=== PATIENT | male | born 1995 | race Caucasian/White ===

== ENCOUNTER 2016-07-17 18:02 | Emergency (ER) | payer OTHER ==
[2016-07-17 19:43] VITALS: BP 145/68
--- NOTE | 2016-07-17 20:03 | UC ---
Lower Extremity/Ankle HPI - HPI Summary HPI Summary: rolled left ankle 2 weeks ago. It was starting to heal, then he rolled it again a few days ago while hunting. Inverted foot. [place] a "pop" both times. Now very painful, hurts a lot at night. Swelling. Limping gait. He had surgery on ankle in 2009 to remove a floating piece of bone that resulted from a fracture. His ankle felt back to normal until 2 weeks ago. - History of Current Complaint Chief Complaint: UCLowerExtremity Stated Complaint: LEFT ANKLE INJURY Time Seen by Provider: 07/17/16 19:52 Hx Obtained From: Patient Onset/Duration: Gradual Onset, Lasting Weeks - 2 Severity Initially: Mild Severity Currently: Moderate Aggravating Factor(s): Standing, Ambulation Alleviating Factor(s): Rest, Elevation, Ice - Risk Factors Gout Risk Factors: Male, Obesity DVT Risk Factors: Negative Septic Arthritis Risk Factor: Negative - Allergies/Home Medications Allergies/Adverse Reactions: Allergies Allergy/AdvReac Type Severity Reaction Status Date / Time No Known Allergies Allergy Verified 07/17/16 19:36 Home Medications: Home Medications Ibuprofen TAB* [Advil TAB*] 400 mg PO Q6H PRN 07/17/16 [History Confirmed ] PMH/Surg Hx/FS Hx/Imm Hx Respiratory History Of: Reports: Asthma - Surgical History Surgical History: Yes Surgery Procedure, Year, and Place: 2008- ankle surgery - Family History Known Family History: Positive: Hypertension - Social History Occupation: Employed Full-time Lives: With Family Alcohol Use: Rare Substance Use Type: None Smoking Status (MU): Never Smoked Tobacco - Immunization History Vaccination Up to Date: Yes Review of Systems Constitutional: Negative Skin: Negative Eyes: Negative ENT: Negative Respiratory: Negative Cardiovascular: Negative Gastrointestinal: Negative Genitourinary: Negative Motor: Negative Neurovascular: Negative Musculoskeletal: Arthralgia, Decreased ROM, Edema, Myalgia Neurological: Negative Psychological: Negative All Other Systems Reviewed And Are Negative: Yes Physical Exam Triage Information Reviewed: Yes Appearance: Well-Appearing, No Pain Distress, Well-Nourished, Obese Vital Signs: Initial Vital Signs Temp 98.8 F 07/17/16 19:37 Pulse 81 07/17/16 19:37 Resp 20 07/17/16 19:37 BP 145/68 07/17/16 19:37 Vital Signs Reviewed: Yes Eye Exam: Normal Neck exam: Normal Neck: Positive: Supple Respiratory Exam: Normal Cardiovascular Exam: Normal Musculoskeletal Exam: Other - left ankle diffusely swollen. No specific tenderness to palpation. Good ROM, pain on inverting foot and weight-bearing. He says pain radiates to foot dorsum Neurological Exam: Normal Psychological Exam: Normal Skin Exam: Normal Diagnostics - Laboratory Diagnostic Studies Completed/Ordered: xray ankle neg Lower Extremity Course/Dx - Differential Dx/Diagnosis Differential Diagnosis/HQI/PQRI: Fracture (Closed), Sprain Provider Diagnoses: ankle sprain Discharge - Discharge Plan Condition: Stable Disposition: HOME Patient Education Materials: Ankle Sprain (ED), Ankle Exercises (GEN) Referrals: Isidro Qureshi MD [Medical Doctor] - Isacc Chairez MD [Primary Care Provider] - Additional Instructions: If you are not improving after a week of rest, contact Dr. Qureshi (Orthopedic Surgery) for further evaluation
--- NOTE | 2016-07-17 20:19 | RAD ---
INDICATION: Left ankle pain after traumatic inversion injury one week earlier. COMPARISON: Ankle radiograph dated May 20, 2015 TECHNIQUE: 3 views of the left ankle were obtained. FINDINGS: The well corticated bones exhibit normal alignment. Joint spaces appear maintained. No fracture is seen. IMPRESSION: Normal ankle radiograph. If the patient's symptoms persist, follow-up imaging is recommended.
== END 2016-07-17 20:48 | disposition home or self-care (01) ==
LOC: UCCORT 18:02
DX: S93.402A Sprain of unspecified ligament of left ankle, initial encounter (principal); X50.1XXA Overexertion from prolonged static or awkward postures, initial encounter; Y93.89 Activity, other specified; Y92.9 Unspecified place or not applicable
CPT/HCPCS: 99213; G0463

== ENCOUNTER 2017-05-29 17:03 | Emergency (ER) | payer OTHER | END 2017-05-29 19:38 | disposition left against medical advice (07) | LOC: UCCORT 17:03 | DX: S99.922A Unspecified injury of left foot, initial encounter (principal); X58.XXXA Exposure to other specified factors, initial encounter; Y93.9 Activity, unspecified; Y92.9 Unspecified place or not applicable; Z53.21 Procedure and treatment not carried out due to patient leaving prior to being seen by health care provider ==

== ENCOUNTER 2018-03-16 12:23 | Emergency (ER) | payer OTHER ==
[2018-03-16 13:43] VITALS: BP 134/79
--- NOTE | 2018-03-16 13:48 | ED ---
Skin Complaint - HPI Summary HPI Summary: 23 yr old male with insect bite to right upper buttock area. He was bitten about six days ago. He denies any fever or chills. He has a localized area of swelling and some redness around the bite. he is concerned about lyme exposure. - History of Current Complaint Time Seen by Provider: 03/16/18 13:35 Stated Complaint: BITE - Allergy/Home Medications Allergies/Adverse Reactions: Allergies Allergy/AdvReac Type Severity Reaction Status Date / Time seasonal Allergy Congestion Uncoded 03/16/18 13:44 PMH/Surg Hx/FS Hx/Imm Hx Respiratory History: Reports: Hx Asthma - Surgical History Surgery Procedure, Year, and Place: 2008- ankle surgery Infectious Disease History: Denies: Traveled Outside the [place] in Last 30 Days - Family History Known Family History: Positive: Hypertension - Social History Occupation: Employed Full-time Alcohol Use: Rare Substance Use Type: Reports: None Smoking Status (MU): Never Smoked Tobacco Review of Systems Constitutional: Negative Positive: Other - tick bite All Other Systems Reviewed And Are Negative: Yes Physical Exam Triage Information Reviewed: Yes Vital Signs Reviewed: Yes Appearance: Positive: Well-Appearing, No Pain Distress Skin: Positive: Warm, Skin Color Reflects Adequate Perfusion, Other - left upper gluteal area with a 1.5 cm diameter area of redness without fluctuance. Head/Face: Positive: Normal Head/Face Inspection Eyes: Positive: EOMI ENT: Positive: Normal ENT inspection Neck: Positive: Nontender Respiratory/Lung Sounds: Positive: Clear to Auscultation, Breath Sounds Present Cardiovascular: Positive: RRR. Negative: Murmur Abdomen Description: Negative: Distended Musculoskeletal: Positive: Strength/ROM Intact Neurological: Positive: Sensory/Motor Intact, Alert, Oriented to Person Place, Time, CN Intact II-III Psychiatric: Positive: Normal Course/Dx - Course Course Of Treatment: 23 yr old male with insect bite, possible tick bite. Rx Doxy for 14 days. FU with PMD. - Diagnoses Provider Diagnoses: Tick bite, Cellulitis Discharge - Sign-Out/Discharge Documenting (check all that apply): Patient Departure All imaging exams completed and their final reports reviewed: No Studies - Discharge Plan Condition: Good Disposition: HOME Prescriptions: DOXYcycline CAP(*) [DOXYcycline 100MG CAP(*)] 100 mg PO BID #28 cap Patient Education Materials: Cellulitis (ED), Insect Bite or Sting (ED), Tick Bite (ED) Referrals: Isacc Chairez MD [Primary Care Provider] - 2 Days - Billing Disposition and Condition Condition: GOOD Disposition: Home
== END 2018-03-16 14:07 | disposition home or self-care (01) ==
LOC: UCCORT 12:23
DX: S30.860A Insect bite (nonvenomous) of lower back and pelvis, initial encounter (principal); L03.317 Cellulitis of buttock; L03.319 Cellulitis of trunk, unspecified; W57.XXXA Bitten or stung by nonvenomous insect and other nonvenomous arthropods, initial encounter; Y93.9 Activity, unspecified; Y92.9 Unspecified place or not applicable
CPT/HCPCS: 99212; G0463

== ENCOUNTER 2018-07-02 13:01 | Emergency (ER) | payer OTHER ==
[2018-07-02 13:24] VITALS: BP 142/71
--- NOTE | 2018-07-02 13:45 | ED ---
Skin Complaint - HPI Summary HPI Summary: 23 yr old male with the complaint of left axilla abscess. Onset a week ago, and initially started with a pimple and then followed by progressive swelling. The area started spontaneously draining over the weekend. He denies fever, chills, feeling ill. Denies dizziness. - History of Current Complaint Chief Complaint: UCSkin Time Seen by Provider: 07/02/18 13:29 Stated Complaint: SKIN CONCERN Pain Intensity: 2 - Allergy/Home Medications Allergies/Adverse Reactions: Allergies Allergy/AdvReac Type Severity Reaction Status Date / Time seasonal Allergy Congestion Uncoded 03/16/18 13:44 PMH/Surg Hx/FS Hx/Imm Hx Respiratory History: Reports: Hx Asthma - Surgical History Surgery Procedure, Year, and Place: 2008- ankle surgery Infectious Disease History: No Infectious Disease History: Denies: Traveled Outside the [place] in Last 30 Days - Family History Known Family History: Positive: Hypertension - Social History Alcohol Use: Occasionally Substance Use Type: Reports: None Smoking Status (MU): Never Smoked Tobacco Review of Systems Constitutional: Negative Positive: Other - left axilla abscess All Other Systems Reviewed And Are Negative: Yes Physical Exam Triage Information Reviewed: Yes Vital Signs On Initial Exam: Initial Vitals Temp Pulse Resp BP Pulse Ox 97.7 F 74 16 142/71 99 07/02/18 13:22 07/02/18 13:22 07/02/18 13:22 07/02/18 13:22 07/02/18 13:22 Vital Signs Reviewed: Yes Appearance: Positive: Well-Appearing, No Pain Distress Skin: Positive: Warm, Skin Color Reflects Adequate Perfusion, Other - There is an abscess that has already spontaneously drained with little flutuance left. Only a scant amount of pus expressed from this. Head/Face: Positive: Normal Head/Face Inspection Eyes: Positive: EOMI ENT: Positive: Normal ENT inspection Neck: Positive: Nontender Respiratory/Lung Sounds: Positive: Clear to Auscultation, Breath Sounds Present Cardiovascular: Positive: RRR. Negative: Murmur Abdomen Description: Negative: Distended Musculoskeletal: Positive: Strength/ROM Intact Neurological: Positive: Sensory/Motor Intact, Alert, Oriented to Person Place, Time, CN Intact II-III Psychiatric: Positive: Normal Diagnostics - Vital Signs Vital Signs Temp Pulse Resp BP Pulse Ox 07/02/18 13:22 97.7 F 74 16 142/71 99 - Laboratory Lab Statement: Any lab studies that have been ordered have been reviewed, and results considered in the medical decision making process. Course/Dx - Course Course Of Treatment: 23 yr old with left axilla abscess. Rx with Bactrim DS for 10 days. - Diagnoses Provider Diagnoses: Abscess of axilla, left, Hypertension Discharge - Sign-Out/Discharge Documenting (check all that apply): Patient Departure All imaging exams completed and their final reports reviewed: No Studies - Discharge Plan Condition: Good Disposition: HOME Prescriptions: Sulfamethox/Trimethoprim DS* [Bactrim DS 800/160 TAB*] 1 tab PO BID #20 tab Patient Education Materials: Abscess (ED), Hypertension (ED) Referrals: Isacc Chairez MD [Primary Care Provider] - 2 Days - Billing Disposition and Condition Condition: GOOD Disposition: Home
== END 2018-07-02 14:00 | disposition home or self-care (01) ==
LOC: UCCORT 13:01
DX: L02.412 Cutaneous abscess of left axilla (principal); I10 Essential (primary) hypertension
CPT/HCPCS: 99212; G0463

== ENCOUNTER 2019-01-19 08:25 | Emergency (ER) | payer OTHER ==
--- NOTE | 2019-01-19 08:38 | UC ---
Skin Complaint HPI - HPI Summary HPI Summary: rash and headache x 1 . does not itch or hurt. was incidentally noticed by girlfriend. OF note pt. hunts often and although cannot recall tick bite w/in the past 2 mo. had 7 ticks on him in November. Denies recent po antibx use or fever. - History of Current Complaint Time Seen by Provider: 01/19/19 08:37 Stated Complaint: BULLSEYE ON BACK Hx Obtained From: Patient - Allergy/Home Medications Allergies/Adverse Reactions: Allergies Allergy/AdvReac Type Severity Reaction Status Date / Time seasonal Allergy Congestion Uncoded 01/19/19 08:39 PMH/Surg Hx/FS Hx/Imm Hx Previously Healthy: Yes Endocrine History: Other - obesity - Surgical History Surgical History: Yes Surgery Procedure, Year, and Place: 2008- ankle surgery - Family History Known Family History: Positive: Hypertension - Social History Alcohol Use: Occasionally Substance Use Type: None Smoking Status (MU): Never Smoked Tobacco - Immunization History Most Recent Tetanus Shot: unknown Vaccination Up to Date: Yes Review of Systems All Other Systems Reviewed And Are Negative: Yes Constitutional: Negative: Fever Skin: Positive: Rash Respiratory: Positive: Negative Cardiovascular: Positive: Negative Musculoskeletal: Negative: Arthralgia, Myalgia Neurological: Positive: Headache. Negative: Weakness Is Patient Immunocompromised?: No Physical Exam Triage Information Reviewed: Yes Appearance: Well-Appearing Vital Signs Reviewed: Yes Respiratory Exam: Normal Cardiovascular Exam: Normal Neurological: Positive: Alert, Other: - CN II-VII INTACT Skin: Positive: Rashes - R LOWER BACK has oblong full/uniform patch that is red , non blanching, nontender. no open areas. Course/Dx - Course Course Of Treatment: R lower Erythema migrans uniform w/ a hx of tick exposure and today a week of headache. Discussed lyme disease, tretament and prevention. He declined testing and will tx empirically. Otherwise exam unremarkble and vitals good. he will f/u w/ pcp should new symptoms develop. - Differential Diagnoses - Skin Complaint Differential Diagnoses: Local Allergic Reaction, Tick Born Illness, Viral Exanthem - Diagnoses Provider Diagnosis: Erythema migrans (Lyme disease) Discharge - Sign-Out/Discharge Documenting (check all that apply): Patient Departure All imaging exams completed and their final reports reviewed: No Studies - Discharge Plan Condition: Good Disposition: HOME Prescriptions: DOXYcycline CAP(*) [DOXYcycline 100MG CAP(*)] 100 mg PO BID 14 Days #28 cap Patient Education Materials: Lyme Disease (ED) Referrals: Isacc Chairez MD [Primary Care Provider] - Additional Instructions: Please follow up with primary care if not improving. - Billing Disposition and Condition Condition: GOOD Disposition: Home - Attestation Statements Provider Attestation: Per institutional requirements, I have reviewed the chart, however, I was not consulted specifically or made aware of this patient by the midlevel provider. I did not personally evaluate, interact with , or disposition this patient.
[2019-01-19 08:39] VITALS: BP 118/62
== END 2019-01-19 09:01 | disposition home or self-care (01) ==
LOC: UCCORT 08:25
DX: A26.0 Cutaneous erysipeloid (principal)
CPT/HCPCS: 99212; G0463